=== PATIENT | male | born 2000 | race African-American/Black ===

== ENCOUNTER 2022-07-03 11:29 | Emergency (ER) | payer BC ==
[2022-07-03] MEDS ORDERED: Ketorolac Tromethamine 30 MG/ML VIAL ONE (13:18)
[2022-07-03 13:22] LABS: #Eosinphils 0.1 thou/uL (0.0-0.7); #Monocytes 0.6 thou/uL (0.11-0.59); #Neutrophils 7.7 thou/uL (1.40-6.50); %Basophils 0.3 % (0.0-1.0); %Eosinophils 1.2 % (0.0-10.0); %Lymphocytes 15.1 % (28.0-48.0); %Monocytes 6.3 % (0.0-4.0); %Neutrophils 76.9 % (31.0-61.0); Hemoglobin 13.8 g/dL (14.0-18.0); Mean Corpuscular HGB CONC 30.9 g/dL (32.0-36.0); Mean Corpuscular Hemoglobin 24.4 pg (25.0-35.0); Mean Corpuscular Volume 78.8 fl (78.0-98.0); Platelet Count 369 10x3/uL (130-400); RBC Distribution Width 15.9 % (11.5-14.5); Red Blood Cell (RBC) Count 5.66 mill/uL (4.00-5.20)
[2022-07-03 13:47] LABS: ALT (SGPT) 30 U/L (8-55); AST (SGOT) 35 U/L (10-45); Albumin 4.5 g/dL (3.5-5.0); Alkaline Phosphatase 119 U/L (50-130); Anion Gap 17 mmol/L (10-20); BUN (Urea Nitrogen) 12 mg/dL (8.4-21.0); Bilirubin, Total 0.6 mg/dL (0.2-1.2); Calc. Creatinine Clearance 0 mL/min (70-130); Calcium 10.2 mg/dL (7.8-10.44); Carbon Dioxide 22 mmol/L (22-29); Chloride 102 mmol/L (98-107); Estimated GFR 130; Globulin 5.3 g/dL (2.4-3.5); Glucose 81 mg/dL (70-105); Potassium 4.2 mmol/L (3.5-5.1); Protein, Total 9.8 g/dL (6.0-8.3); Sodium 137 mmol/L (136-145)
[2022-07-03] MEDS ORDERED: Ondansetron PF 4 MG/2 ML Vial ONE (14:23)
== END 2022-07-03 14:43 | disposition home or self-care (01) ==
LOC: ERS 11:29
DX: R11.0 Nausea (principal); E86.0 Dehydration; F17.210 Nicotine dependence, cigarettes, uncomplicated
CPT/HCPCS: 80053; 85025; 93005; 96361; 96374; 96375; J1885; J2405

== ENCOUNTER 2023-02-13 16:03 | Emergency (ER) | payer BC | END 2023-02-13 17:21 | disposition left against medical advice (07) | LOC: ERS 16:03 | DX: Z53.21 Procedure and treatment not carried out due to patient leaving prior to being seen by health care provider (principal) ==

== ENCOUNTER 2023-04-02 11:50 | Outpatient (CLI) | payer BC | END 2023-04-02 11:51 | disposition home or self-care (01) | LOC: BICRAD 11:50 | PROVIDERS: ATTEND Family Medicine | DX: M54.50 Low back pain, unspecified (principal) | CPT/HCPCS: 72100 ==

== ENCOUNTER 2023-07-20 18:35 | Emergency (ER) | payer OTHER, BC ==
[2023-07-20] MEDS ORDERED: Naproxen 500 MG TAB ONE (19:26)
[2023-07-20] MEDS ORDERED: Boostrix 0.5 ML (Tdap) VIAL (>/=7 yrs of age) ONE (19:33)
== END 2023-07-20 19:25 | disposition home or self-care (01) ==
LOC: ERS 18:35
DX: S61.011A Laceration without foreign body of right thumb without damage to nail, initial encounter (principal); F17.290 Nicotine dependence, other tobacco product, uncomplicated; W25.XXXA Contact with sharp glass, initial encounter; Y99.0 Civilian activity done for income or pay; Z23 Encounter for immunization
CPT/HCPCS: 12002; 29125; 90471; 90715